=== PATIENT | male | born 1975 | race Caucasian/White ===

== ENCOUNTER 2018-12-08 20:52 | Emergency (ER) | payer OTHER ==
[~2018-12-08] VITALS: Ht 167.6 cm; Wt 65.8 kg
[2018-12-09] MEDS ORDERED: ULTRAM50 MG PO (02:41)
== END 2018-12-09 02:59 | disposition home or self-care (01) ==
LOC: ER 20:52
DX: S42.342A Displaced spiral fracture of shaft of humerus, left arm, initial encounter for closed fracture (principal); W18.39XA Other fall on same level, initial encounter; Y93.89 Activity, other specified; Y92.098 Other place in other non-institutional residence as the place of occurrence of the external cause; Y99.8 Other external cause status

== ENCOUNTER 2020-12-06 13:48 | Emergency (ER) | payer OTHER ==
[~2020-12-06] VITALS: Ht 167.6 cm; Wt 63.5 kg
[~2020-12-06 13:48] MED LIST: ULTRAM50 MG PO
[2020-12-06] MEDS ORDERED: CYMBALTA30 MG (14:13)
[2020-12-06] MEDS ORDERED: RESTORIL30 M1 (14:14)
[2020-12-06] MEDS ORDERED: PEPCID AC20 MG PO (18:50)
== END 2020-12-06 19:23 | disposition home or self-care (01) ==
LOC: ER 13:48
DX: K52.9 Noninfective gastroenteritis and colitis, unspecified (principal)

== ENCOUNTER 2021-01-02 10:35 | Emergency (ER) | payer OTHER ==
[~2021-01-02] VITALS: Ht 167.6 cm; Wt 63.5 kg
[~2021-01-02 10:35] MED LIST changes: +CYMBALTA30 MG; +PEPCID AC20 MG PO; +RESTORIL30 M1
== END 2021-01-02 18:09 | disposition home or self-care (01) ==
LOC: ER 10:35
DX: K52.9 Noninfective gastroenteritis and colitis, unspecified (principal); R11.11 Vomiting without nausea; E86.0 Dehydration

== ENCOUNTER 2021-02-20 23:20 | Emergency (ER) | payer OTHER ==
[~2021-02-20] VITALS: Ht 167.6 cm; Wt 74.8 kg
[2021-02-21] MEDS ORDERED: MIRALAX510 GM PO (02:30)
== END 2021-02-21 02:40 ==
LOC: ER 23:20
DX: K29.60 Other gastritis without bleeding (principal); K59.09 Other constipation
CPT/HCPCS: 74177; Q9965

== ENCOUNTER 2021-11-24 16:23 | Emergency (ER) | payer OTHER ==
[~2021-11-24] VITALS: Ht 167.6 cm; Wt 65.8 kg
[~2021-11-24 16:23] MED LIST changes: +MIRALAX510 GM PO
== END 2021-11-24 20:33 | disposition home or self-care (01) ==
LOC: ER 16:23
DX: U07.1 COVID-19 (principal); K29.70 Gastritis, unspecified, without bleeding; Z91.013 Allergy to seafood

== ENCOUNTER 2021-11-25 11:10 | Outpatient (CLI) | payer OTHER | END 2021-11-25 11:55 | disposition home or self-care (01) | LOC: ASH CLINIC 11:10 | PROVIDERS: ATTEND General Practice | DX: U07.1 COVID-19 (principal) ==